=== PATIENT | male | born 1995 | race Two or more races ===

== ENCOUNTER 2020-02-12 06:00 | Day surgery (SDC) | payer OTHER ==
[2020-02-11 12:10] VITALS: BMI 20.9
[2020-02-12] MEDS ORDERED: BUPIVACAINE HCL 100 ML ONE (11:59)
[2020-02-12] MEDS ORDERED: LIDOCAINE HCL 1%, 10 MG/ML (20ML VIAL) ONE (11:59)
[2020-02-12] MEDS ORDERED: MIDAZOLAM HCL 2 MG/2 ML SINGLE DOSE VIAL ONE (12:06)
[2020-02-12] MEDS ORDERED: ceFAZolin SODIUM 1 GM VIAL IVPB ONE (12:12)
[2020-02-12] MEDS ORDERED: oxyCODONE HCL 5 MG TABLET PO PRN ×2 (12:29→12:37)
[2020-02-12] MEDS ORDERED: ONDANSETRON 4 MG/2 ML VIAL IVPUSH PRN (12:29)
[2020-02-12] MEDS ORDERED: LACTATED RINGERS SOLUTION 1,000 ML IV SCH (12:30)
[2020-02-12] MEDS ORDERED: BACITRACIN 15 GM TUBE TOPICAL OINTMENT TP ONE (12:35)
--- NOTE | 2020-02-12 12:38 | OP ---
Operative Note - Note: Operative Date: 02/12/20 Pre-Operative Diagnosis: phimosis Operation: circumcision Post-Operative Diagnosis: Same as Pre-op Surgeon: Renny Wisdom Anesthesia: General Estimated Blood Loss (mls): 1 Operative Report Dictated: Yes
[2020-02-12] MEDS ORDERED: DEXTROSE 5%-0.45% SALINE 1,000 ML IV SCH (12:45)
--- NOTE | 2020-02-12 13:01 | OP ---
DATE OF OPERATION: 02/12/2020 PREOPERATIVE DIAGNOSIS: Phimosis. POSTOPERATIVE DIAGNOSIS: Phimosis. PROCEDURE: Circumcision. SURGEON: Renny Wisdom MD INDICATION: Patient is a 24-year-old male with phimotic foreskin who elected to undergo circumcision. Risks, benefits, and alternatives were discussed. DESCRIPTION OF PROCEDURE: After informed consent was obtained, patient was taken to the OR and placed supine on the operating table. After cardiac monitoring was administered, a spinal anesthetic was then given. The penis was prepped and draped in standard surgical fashion. With the foreskin in its normal anatomic position, a circumferential incision was created with a No. 15-blade at the level of the coronal sulcus. The foreskin was then retracted, and a second circumferential incision was created just proximal to the coronal sulcus. The foreskin was then excised in its entirety with cautery and sent to pathology for analysis. The proximal foreskin was then sewn back to the distal foreskin circumferentially using 3-0 chromic sutures until the entire skin was reapproximated. Dry sterile dressings were then placed. Patient awoken from anesthesia and transferred to recovery room in stable condition. There were no complications. Estimated blood loss was minimal. Navya [id number]
[2020-02-12 16:38] VITALS: BP 134/83; PULSE 87; TEMP 98.6
--- NOTE | 2020-02-16 15:27 | PATH ---
Surgical Pathology Report Patient Name: YOLY BETANCOURT [facility]. Rec. #: [id number] /Age/Gender: 1995 (Age: 24) / M Account: [id number] Location: [facility] SURGICAL Taken: 02/12/2020 Received: 02/12/2020 Reported: 02/16/2020 Physicians: Renny Wisdom M.D. Specimen(s) Received FORESKIN Clinical History Phimosis Final Diagnosis FORESKIN, EXCISION: PORTION OF FORESKIN WITH MILD CHRONIC INFLAMMATION. Electronically Signed Aric Pablo M.D. Gross Description Received in formalin labeled "foreskin," is a 5.8 x 2.2 x 0.5 cm tsang-brown, wrinkled portion of skin, consistent with foreskin. No discrete epidermal lesions are identified. Cook Cold Meat sections are submitted in one cassette. /02/13/2020 saudi02/13/2020
== END 2020-02-12 16:40 | disposition home or self-care (01) ==
LOC: JASU-SURG 06:00
PROVIDERS: ATTEND Urology
PROC: 0VTTXZZ Resection of Prepuce, External Approach (ICD-10-PCS; principal; 2020-02-12 12:00)
DX: N47.1 Phimosis (principal)
CPT/HCPCS: 88304-TC; 94760